=== PATIENT | male | born 1995 | race Caucasian/White ===

== ENCOUNTER 2021-09-12 20:23 | Emergency (ER) | payer BC ==
[2021-09-12 20:35] VITALS: BP 137/74; PULSE 105; BMI 30.8
== END 2021-09-12 21:04 | disposition home or self-care (01) ==
LOC: FER 20:23
DX: M25.511 Pain in right shoulder (principal)
CPT/HCPCS: 73030-TC-LT-FY; 99283-25

== ENCOUNTER 2022-08-02 11:23 | Emergency (ER) | payer BC ==
[2022-08-02 11:35] VITALS: BP 140/93; PULSE 99; RESP 16; TEMP 99.1; BMI 29.8
[2022-08-02] MEDS ORDERED: IBUPROFEN 600 MG TABLET (FP) PO ONE ×2 (11:43→11:46)
== END 2022-08-02 12:01 | disposition home or self-care (01) ==
LOC: FER 11:23
DX: S16.1XXA Strain of muscle, fascia and tendon at neck level, initial encounter (principal); V49.40XA Driver injured in collision with unspecified motor vehicles in traffic accident, initial encounter
CPT/HCPCS: 99283-25

== ENCOUNTER 2024-01-31 17:21 | Emergency (ER) | payer BC, OTHER ==
[2024-01-31 17:43] VITALS: BP 139/88; PULSE 96; RESP 18; TEMP 98.5; BMI 28.8
[2024-01-31] MEDS: SODIUM CHLORIDE 0.9% 500 ML INFUS.BAG IV ONE (18:26)
[2024-01-31 18:33] LABS: BASO % 0.8 % (0-2.0); EOS % 2.3 % (0-4.5); HEMATOCRIT 41.4 % (35.4-49); HEMOGLOBIN 14.6 GM/dL (11.7-16.9); LYMPH % 22.4 % (8-40); MCH 27.5 pg (25.7-33.7); MCHC 35.3 g/dl (32.0-35.9); MEAN CELL VOLUME 77.9 fl (80-96); MEAN PLT VOLUME 7.5 fl (7.5-11.1); MONO % 9.9 % (3.8-10.2); NEUT % 64.6 % (42.8-82.8); PLATELET COUNT 235 10^3/uL (134-434); RBC 5.31 M/mm3 (4.00-5.60); RDW 12.8 % (11.9-15.9)
[2024-01-31 19:06] LABS: POTASSIUM 3.4 mmol/L (3.5-5.1)
[2024-01-31 19:09] LABS: ALBUMIN 4.3 g/dl (3.4-5.0); BLOOD UREA NITROGEN 9.4 mg/dL (7-18); CALCIUM 9.2 mg/dL (8.5-10.1)
[2024-01-31 19:12] LABS: CREATININE 0.8 mg/dL (0.55-1.3)
[2024-01-31 19:14] LABS: BILIRUBIN,TOTAL 1.2 mg/dL (0.2-1); TOT PROT 7.4 g/dl (6.4-8.2)
== END 2024-01-31 21:22 | disposition home or self-care (01) ==
LOC: JER 17:21
DX: R53.1 Weakness (principal); E87.1 Hypo-osmolality and hyponatremia; R00.2 Palpitations; R42 Dizziness and giddiness
CPT/HCPCS: 36415; 80053; 85025; 93005; 93010; 99284-25